=== PATIENT | female | born 1960 | race Two or more races ===

== ENCOUNTER 2021-10-17 19:11 | Inpatient (IN) | payer OTHER ==
[~2021-10-17] VITALS: Ht 162.6 cm; Wt 95.3 kg
[~2021-10-17 19:11] MED LIST: PEPCID40 MG PO; ZOFRAN4 MG PO
[2021-10-17] MEDS ORDERED: ALBUTEROL0.63 MG/3 (19:32)
[2021-10-17] MEDS ORDERED: PROVENTIL HFA6.7 GM (19:32)
--- NOTE | 2021-10-17 19:33 | NUR ---
SE RECIBE PTE ALERTA Y ORIENTADA X3 QUIEN REFIERE SE ENVENENO CON CAMARONES HACE 8 CASTRO Y AUN SIENTE LOS SINTOMAS, DOLOR GENERAL DE CUERPO Y FIEBRE. SE MONITOREAN S/V Y AL MOMENTO DEL TRIAGE PRESENTA 102.8. SE UBICA EN FT.
--- NOTE | 2021-10-17 22:30 | NUR ---
PACIENTE EVALUADA POR DR ZABALA QUIEN [place] MEDICO, SE LE ORIENTA A PACIENTE SOBRE EL MISMO Y REFIERE ENTENDER SE COLECTAN MUESTRAS DE LABORATORIO Y SE ADMINISTRAN MEDICAMENTOS CALIN ORDEN. SE LE HACE ENTREGA DE CONTRASTE Y SE LE INDICA QUE NOTIFIQUE RUIZ PRONTO CULMINE EL MISMO. PACIENTE UBICADA EN MERARIILLO
--- NOTE | 2021-10-18 01:44 | NUR ---
SE NOTIFICA TERAPIA RESP A MS LADY.
--- NOTE | 2021-10-18 07:25 | NUR ---
SE RECIBE PTE DEL TURNO ANTERIOR, ALERTA Y ORIENTADA EN RU MORRIS ESFERAS, UBICADA EN ELIZABET NIVEL MAS BAJO, DYE DE IDENTIFICACION Y BARANDAS ELEVADAS POR PRECAUCION. SE OBSERVA CON BUEN PATRON RESPIRATORIO Y PIEL TIBIA AL TACTO. S/L PATENTE Y MATT DE EDEMA O ERITEMA. PENDIENTE CONSULTA CON DRA DURAN (MEDICINA INTERNA) Y DR ERAZO (CIRUGIA GENERAL). SE MANTIENE BAJO OBSERVACION.
--- NOTE | 2021-10-18 20:33 | NUR ---
SE REALIZA ADMINISTRACION DE MEDICAMENTOS POR ORDEN MEDICA, SE ORIENTA A PACIENTE SOBRE USO Y EFECTOS DEL MEDICAMENTO A SER ADMINISTRADO.
--- NOTE | 2021-10-18 23:27 | NUR ---
SE RECIBE PTE ALERTA Y ORIENTADA X3, CON BARANDAS ELEVADAS POR SEGURIDAD. PTE SE ENCUENTRA CANALIZADA EN BRAZO DERECHO CON ANGIO #22, MATT DE EDEMA Y ERITEMA; CON UN 0.9 1000ML BAJANDO A 120ML/HR. SE LEVON SIGNOS VITALES Y SE EVALUA DOLOR, LO CUAL PTE VERBALIZA NO TENER. PENDIENTE CONSULTA CON DR. JARQUIN.
--- NOTE | 2021-10-19 04:00 | NUR ---
PTE TRANQUILA EN CAMA CON BARANDAS ELEVADAS POR SEGURIDAD EN COMPANIA DE FAMILIAR. SE MANTIENE EN OBSERVACION POR CAMBIOS EN CONDICION MEDICA.
--- NOTE | 2021-10-19 07:02 | NUR ---
SE RECIBE ENTREGA DE TURNO. PTE SE ENCUENTRA ALERTA Y ORIENTADA X3. SE ENCUENTRA EN ELIZABET CON BARANDAS ELEVADAS, DYE DE IDENTIFICACION Y SIN DIFICULTAD RESPIRATORIA. ACCESO VENOSO #20 EN BRAZO DERECHO PATENTE SIN ERITEMA NI EDEMA. RECIBE 1000 ML 0.9 NSS A 120 ML/HR. EN ESPERA DE REEVALUACION POR CASTRO MILES. SE MANTIENE BAJO OBSERVACION.
--- NOTE | 2021-10-19 12:19 | NUR ---
SE PROVEE SEGUIMIENTO A PTE CON DR ERAZO QUIEN INDICA QUE PTE DEBE SER ADMITIDA POR MEDICINA INTERNA. SE NOTIFICA A LA DRA JORDAN, QUIEN INDICA QUE LA MISMA ES UN OLIVIER QUIRURGICO, POR LO QUE SE NOTIFICA A DR ALEX DE LA PAZ POR DR VERDIN.
[2021-10-20] MEDS ORDERED: ONDANSETRON ODT4 MG (15:16)
[2021-10-20] MEDS ORDERED: FAMOTIDINE40 MG (15:16)
== END 2021-10-23 15:20 | disposition home or self-care (01) | DRG 446 ==
LOC: ER 19:11 → MEDJ 10-19 15:01
PROVIDERS: ADMIT Internal Medicine; ATTEND Internal Medicine
DX: K80.00 Calculus of gallbladder with acute cholecystitis without obstruction (principal); R63.0 Anorexia; R10.11 Right upper quadrant pain; Z20.822 Contact with and (suspected) exposure to COVID-19

== ENCOUNTER 2023-12-17 16:57 | Emergency (ER) | payer OTHER ==
[~2023-12-17] VITALS: Ht 162.6 cm; Wt 98.0 kg
[~2023-12-17 16:57] MED LIST changes: +ALBUTEROL0.63 MG/3; +FAMOTIDINE40 MG; +ONDANSETRON ODT4 MG; +PROVENTIL HFA6.7 GM
[2023-12-17] MEDS ORDERED: COZAAR25 MG PO (17:30)
[2023-12-17] MEDS ORDERED: ATORVASTATIN CA10 MG PO (17:30)
[2023-12-17] MEDS ORDERED: ACETAMINOPHEN 500 MG GEL..CAP PO ONE (18:15)
[2023-12-17 19:23] LABS: HEMATOCRIT 31.9 % (36.0-45.00); MEAN CELL VOLUME 85.4 fL (80.00-100.00); MEAN CORPUSCULAR HEMOGLOBIN 29.5 pg (27.00-32.0); MEAN CORPUSCULAR HGB CONC 34.6 g/dl (32.0-36.0); PLATELET COUNT 373 K/uL (150-450); RED BLOOD COUNT 3.74 M/uL (4.00-6.00); RED CELL DISTRIBUTION WIDTH 13.1 % (11.5-14.5)
[2023-12-17 19:27] LABS: ALBUMIN 3.5 gm/dL (3.4-5.0); BILIRUBIN TOTAL 0.76 mg/dL (0.3-1.2); CALCIUM 8.7 mg/dL (8.5-10.1); CREATININE SERUM 0.84 mg/dL (0.55-1.02); GFR 68.7; GLOBULINA 3.7 G/DL (2.4-3.5); TOTAL PROTEIN 7.2 gm/dL (6.4-8.2)
[2023-12-17 19:28] LABS: POTASSIUM 3.87 mEq/L (3.5-5.1)
[2023-12-17 20:42] LABS: PH,URINE 5.5 (5.0-8.0); URINE APPEARANCE Cloudy; URINE BILIRRUBIN Small (NEGATIVE); URINE BLOOD Negative; URINE COLOR Dark Yellow; URINE GLUCOSE Negative (NEGATIVE); URINE KETONE Trace (NEGATIVE); URINE LEUKOCYTE Trace; URINE NITRATE Negative; URINE PROTEIN 30 (NEGATIVE)
[2023-12-17 20:46] LABS: URINE BACTERIA 4504.2 uL (0.0-1933); URINE EPITHELIAL CELLS 186.2 uL (0.0-38.8); URINE RBC 14.8 uL (0.0-20.8); URINE WBC 9.7 uL (0.0-23.2)
[2023-12-17 21:15] LABS: URINE CAST 0.91 uL (0.0-1.40)
[2023-12-17 22:55] LABS: ABG PH 7.448 (7.35-7.45); ABG pCO2 36.7 mmHg (35-45)
[2023-12-17 22:56] LABS: ABG PO2 78.7 mmHg (80-100); BASE EXCESS 1.1 mmol/l; BICARBONATE 24.8 mmol/l (23-25)
[2023-12-17 22:57] LABS: allen test SATISFACTORY; o2 21 %; puncture site RADIAL LEFT
[2023-12-17 22:58] LABS: SaO2 96.1 %
[2023-12-18] MEDS ORDERED: BACTRIM DS TAB1 EACH PO (01:38)
[2023-12-18] MEDS ORDERED: FAMCICLOVIR500 MG PO (01:40)
== END 2023-12-18 02:57 ==
LOC: ER 16:57
PROVIDERS: Nurse Practitioner Family
DX: R50.9 Fever, unspecified (principal); C50.912 Malignant neoplasm of unspecified site of left female breast; I10 Essential (primary) hypertension; J45.909 Unspecified asthma, uncomplicated; Z88.0 Allergy status to penicillin; Z91.013 Allergy to seafood; C56.1 Malignant neoplasm of right ovary

== ENCOUNTER 2024-03-28 15:40 | Emergency (ER) | payer OTHER ==
[~2024-03-28] VITALS: Ht 162.6 cm; Wt 70.8 kg
[~2024-03-28 15:40] MED LIST changes: +ATORVASTATIN CA10 MG PO; +BACTRIM DS TAB1 EACH PO; +COZAAR25 MG PO; +FAMCICLOVIR500 MG PO
[2024-03-28 15:52] VITALS: BP 93/65; O2SAT 98
[2024-03-28] MEDS ORDERED: 0.9 % SODIUM CHLORIDE 1,000 ML IV STA (17:44)
[2024-03-28] MEDS ORDERED: HYOSCYAMINE SULFATE 0.125 MG TAB.SUBL SL ONE (17:45)
[2024-03-28] MEDS ORDERED: KETOROLAC TROMETHAMINE 60 MG VIAL IM STA (17:45)
[2024-03-28] MEDS ORDERED: ONDANSETRON HCL 2 MG/ML VIAL IV STA (17:46)
[2024-03-28] MEDS ORDERED: FAMOtidine 10 MG/ML (4ML VIAL) IV PUSH STA (17:46)
[2024-03-28] MEDS ORDERED: PROMETHAZINE HCL 50 MG/ML AMPUL IM STA (17:47)
[2024-03-28] MEDS ORDERED: MEPERIDINE HCL/PF 25 MG/ML VIAL IM STA (17:47)
[2024-03-28] MEDS ORDERED: HYOSCYAMINE SULFATE 0.125 MG TAB.SUBL ONE (18:09)
[2024-03-28] MEDS ORDERED: KETOROLAC TROMETHAMINE 30 MG VIAL ONE (18:09)
[2024-03-28] MEDS ORDERED: FAMOTIDINE/PF 20 MG/2 ML VIAL ONE (18:10)
[2024-03-28] MEDS ORDERED: ONDANSETRON HCL 2 MG/ML VIAL ONE (18:10)
[2024-03-28 18:42] LABS: HEMATOCRIT 35.2 % (36.0-45.00); HEMOGLOBIN 11.6 g/dL (12.0-15.00); MEAN CELL VOLUME 83.9 fL (80.00-100.00); MEAN CORPUSCULAR HEMOGLOBIN 27.7 pg (27.00-32.0); PLATELET COUNT 448 K/uL (150-450); RED BLOOD COUNT 4.19 M/uL (4.00-6.00)
[2024-03-28 18:51] LABS: RED CELL DISTRIBUTION WIDTH 17.9 % (11.5-14.5)
[2024-03-28 19:05] LABS: ALBUMIN 3.6 gm/dL (3.4-5.0); BILIRUBIN TOTAL 0.83 mg/dL (0.3-1.2); CALCIUM 9.6 mg/dL (8.5-10.1); CREATININE SERUM 1.35 mg/dL (0.55-1.02); GFR 39.73; GLOBULINA 4.6 G/DL (2.4-3.5); POTASSIUM 3.19 mEq/L (3.5-5.1); TOTAL PROTEIN 8.2 gm/dL (6.4-8.2)
[2024-03-28 20:18] LABS: URINE APPEARANCE Turbid; URINE BILIRRUBIN Moderate (NEGATIVE); URINE BLOOD Negative; URINE COLOR Orange; URINE KETONE 15 (NEGATIVE); URINE LEUKOCYTE Small; URINE NITRATE Positive
[2024-03-28] MEDS ORDERED: CIPROFLOXACIN IN 5 % DEXTROSE 400 MG/200 ML PIGGYBAG IV STA (20:20)
[2024-03-28 20:22] LABS: URINE RBC 118.7 uL (0.0-20.8); URINE WBC 90.7 uL (0.0-23.2)
[2024-03-28] MEDS ORDERED: CIPROFLOXACIN IN 5 % DEXTROSE 400 MG/200 ML PIGGYBAG IV ONE (20:32)
[2024-03-28 20:53] LABS: URINE BACTERIA > 9821.5 uL (0.0-1933); URINE CAST > 21.83 uL (0.0-1.40); URINE EPITHELIAL CELLS > 201.7 uL (0.0-38.8); URINE GLUCOSE 100 MG/DL (NEGATIVE); URINE PROTEIN 300 (NEGATIVE)
== END 2024-03-28 22:23 | disposition home or self-care (01) ==
LOC: ER 15:42
DX: K52.9 Noninfective gastroenteritis and colitis, unspecified (principal); Z88.0 Allergy status to penicillin; Z91.013 Allergy to seafood; Z85.3 Personal history of malignant neoplasm of breast; Z20.822 Contact with and (suspected) exposure to COVID-19

== ENCOUNTER 2024-04-03 16:34 | Emergency (ER) | payer OTHER ==
[~2024-04-03] VITALS: Ht 162.6 cm; Wt 68.0 kg
[2024-04-03] MEDS ORDERED: ONDANSETRON HCL 2 MG/ML VIAL IV STA ×2 (17:20→21:43)
[2024-04-03] MEDS ORDERED: ONDANSETRON HCL 2 MG/ML VIAL ONE ×2 (17:34→21:48)
[2024-04-03] MEDS ORDERED: 0.9 % SODIUM CHLORIDE 1,000 ML IV SCH (18:00)
[2024-04-03 18:05] LABS: HEMATOCRIT 30.4 % (36.0-45.00); HEMOGLOBIN 10.4 g/dL (12.0-15.00); MEAN CELL VOLUME 83.2 fL (80.00-100.00); MEAN CORPUSCULAR HEMOGLOBIN 28.5 pg (27.00-32.0); MEAN CORPUSCULAR HGB CONC 34.3 g/dl (32.0-36.0); PLATELET COUNT 359 K/uL (150-450); RED BLOOD COUNT 3.65 M/uL (4.00-6.00); RED CELL DISTRIBUTION WIDTH 18.3 % (11.5-14.5)
[2024-04-03 18:35] LABS: CALCIUM 9.2 mg/dL (8.5-10.1); CREATININE SERUM 0.9 mg/dL (0.55-1.02); GFR 63.44; POTASSIUM 3.33 mEq/L (3.5-5.1)
[2024-04-03 20:45] LABS: URINE APPEARANCE Cloudy; URINE BILIRRUBIN Small (NEGATIVE); URINE BLOOD Negative; URINE COLOR Dark Yellow; URINE GLUCOSE Negative (NEGATIVE); URINE KETONE 15 (NEGATIVE); URINE LEUKOCYTE Small; URINE NITRATE Negative; URINE PROTEIN 30 (NEGATIVE)
[2024-04-03 20:49] LABS: URINE CAST 7.36 uL (0.0-1.40); URINE EPITHELIAL CELLS 167.6 uL (0.0-38.8); URINE RBC 59.2 uL (0.0-20.8); URINE WBC 52.5 uL (0.0-23.2)
[2024-04-03 21:20] LABS: URINE CRYSTALS MODERATE /HPF
[2024-04-03 21:23] LABS: URINE MUCUS HEAVY
== END 2024-04-03 22:40 | disposition home or self-care (01) ==
LOC: ER 16:34
PROVIDERS: Emergency Medicine
DX: K29.70 Gastritis, unspecified, without bleeding (principal); Z88.0 Allergy status to penicillin; Z91.013 Allergy to seafood; Z85.3 Personal history of malignant neoplasm of breast

== ENCOUNTER 2024-04-07 20:36 | Inpatient (IN) | payer OTHER ==
[~2024-04-07] VITALS: Ht 162.6 cm; Wt 83.9 kg
--- NOTE | 2024-04-07 20:57 | NUR ---
SE RECIBE PACIENTE ALERTA Y ORIENTADA X3, REFIERE TENER DOLOR ABDOMINAL, VOMITOS Y DIARREAS.
[2024-04-07] MEDS ORDERED: MEPERIDINE HCL/PF 50 MG/ML VIAL IM ONE (21:30)
[2024-04-07] MEDS ORDERED: 0.9 % SODIUM CHLORIDE 1,000 ML IV ONE (21:30)
[2024-04-07] MEDS ORDERED: ONDANSETRON HCL 2 MG/ML VIAL IV ONE (21:30)
[2024-04-07] MEDS ORDERED: PROMETHAZINE HCL 25 MG/ML AMPUL IM ONE (21:30)
[2024-04-07] MEDS ORDERED: PANTOPRAZOLE SODIUM 40 MG/VIAL VIAL IV ONE (21:30)
[2024-04-07] MEDS ORDERED: ONDANSETRON HCL 2 MG/ML VIAL ONE (22:19)
[2024-04-07] MEDS ORDERED: PROMETHAZINE HCL 25 MG/ML AMPUL ONE (22:20)
--- NOTE | 2024-04-07 22:29 | NUR ---
SE EDUCA SOBRE [place] MEDICO, ESTA REFIERE ENTENDER. SE EXTRAEN MUESTRAS DE LABORATORIO Y SE ADMINISTRAN MEDICAMENTOS CALIN ORDEN MEDICA.
--- NOTE | 2024-04-07 23:00 | NUR ---
SE RECIBE PACIENTE ALERTA Y ORIENTADA X 3 ESFERAS EN CAMA CON BARANDAS ELEVADAS POR SEGURIDAD EN COMPANIA DE FAMILIAR. PRESENTANDO BUEN PATRON RESPIRATORIO. RECIBIENDO IV'S 0.9NSS BAJANDO A 140ML/HR AREA DE VENOPUNCION MATT DE EDEMA Y ERITEMA EN BRAZO DERECHO. PENDIENTE REALIZAR CT ABDOMEN/PELVICO IV. 2320- SE ORIENTA A PACIENTE SOBRE [place] MEDICO, REFIERE ENTENDER. SE ADMINISTRA MEDICAMENTO CALIN ORDEN MEDICA. SE MANTIENE EN OBSERVACION.
[2024-04-07 23:14] LABS: HEMATOCRIT 31.4 % (36.0-45.00); HEMOGLOBIN 10.7 g/dL (12.0-15.00); MEAN CELL VOLUME 83.3 fL (80.00-100.00); MEAN CORPUSCULAR HEMOGLOBIN 28.4 pg (27.00-32.0); MEAN CORPUSCULAR HGB CONC 34.1 g/dl (32.0-36.0); PLATELET COUNT 215 K/uL (150-450); RED BLOOD COUNT 3.76 M/uL (4.00-6.00); RED CELL DISTRIBUTION WIDTH 17.2 % (11.5-14.5)
[2024-04-07 23:30] LABS: BILIRUBIN TOTAL 1.1 mg/dL (0.3-1.2); CALCIUM 9.1 mg/dL (8.5-10.1); CREATININE SERUM 0.88 mg/dL (0.55-1.02); GFR 65.11; GLOBULINA 3.8 G/DL (2.4-3.5); POTASSIUM 3.05 mEq/L (3.5-5.1); TOTAL PROTEIN 6.8 gm/dL (6.4-8.2)
[2024-04-07] MEDS ORDERED: DIPHENHYDRAMINE HCL 50 MG/ML VIAL 1ML IV ONE (23:45)
[2024-04-08] MEDS ORDERED: DIPHENHYDRAMINE HCL 50 MG/ML VIAL 1ML ONE (00:09)
[2024-04-08 01:31] LABS: PH,URINE 6.5 (5.0-8.0); URINE APPEARANCE Clear; URINE BACTERIA 9487.1 uL (0.0-1933); URINE BILIRRUBIN Moderate (NEGATIVE); URINE BLOOD Negative; URINE COLOR Dark Yellow; URINE EPITHELIAL CELLS 71.5 uL (0.0-38.8); URINE GLUCOSE Negative (NEGATIVE); URINE LEUKOCYTE Small; URINE NITRATE Negative; URINE PROTEIN 30 (NEGATIVE); URINE RBC 14.1 uL (0.0-20.8)
[2024-04-08 01:41] LABS: URINE CAST 0.58 uL (0.0-1.40); URINE CRYSTALS FEW /HPF; URINE KETONE >=160 (NEGATIVE)
--- NOTE | 2024-04-08 04:10 | NUR ---
RE-EVALUA PACIENTE. SE ORIENTA SOBRE TRATAMIENTO MEDICO, REFIERE ENTENDER. SE INSERTA SONDA NASOGASTRICA #18 EN FOSA NASAL DERECHA, SE VERIFICA PATENTICIDAD POR MEDIO DE LA AUSCULTACION, SE ENCUENTRA PATENTE. SE CONECTA A SUCCION INTERMITENTE. SE OBSERVA EGRESO GASTRICO DE 50ML COLOR AMARILLO. SE MICHAEL A PACIENTE EN CAMA EN COMPANIA DE FAMILIAR.
[2024-04-08] MEDS ORDERED: ENALAPRILAT DIHYDRATE 1.25 MG/ML VIAL IV PRN (11:15)
[2024-04-08] MEDS ORDERED: ONDANSETRON HCL 2 MG/ML VIAL IV PRN (11:15)
[2024-04-08] MEDS ORDERED: POTASSIUM CHLORIDE/D5W 20 MEQ/1,000 ML PIGGYBAG IV ONE ×2 (11:28→11:30)
[2024-04-08 11:33] VITALS: BP 106/57
[2024-04-08] MEDS ORDERED: MEROPENEM 1,000 MG VIAL IV SCH (13:00)
[2024-04-08 18:00] VITALS: BP 139/83
[2024-04-09 01:42] VITALS: BP 133/77
[2024-04-09 08:44] VITALS: BP 122/71; O2SAT 96
[2024-04-09 17:19] VITALS: BP 136/78; O2SAT 96
[2024-04-10 01:11] VITALS: BP 123/75; O2SAT 98
[2024-04-10 08:32] VITALS: BP 103/61; O2SAT 95
[2024-04-10 16:43] VITALS: BP 114/65; O2SAT 98
[2024-04-10] MEDS ORDERED: MEROPENEM 500 MG/VIAL VIAL IV SCH (18:00)
[2024-04-11 00:25] VITALS: BP 106/48
[2024-04-11 09:08] VITALS: BP 111/63; O2SAT 97
[2024-04-11 17:35] LABS: HEMATOCRIT 32.4 % (36.0-45.00); HEMOGLOBIN 11.1 g/dL (12.0-15.00); MEAN CELL VOLUME 83.1 fL (80.00-100.00); MEAN CORPUSCULAR HEMOGLOBIN 28.4 pg (27.00-32.0); MEAN CORPUSCULAR HGB CONC 34.2 g/dl (32.0-36.0); PLATELET COUNT 384 K/uL (150-450); RED BLOOD COUNT 3.89 M/uL (4.00-6.00); RED CELL DISTRIBUTION WIDTH 17.8 % (11.5-14.5)
[2024-04-11 17:41] VITALS: BP 115/65
[2024-04-11 18:10] LABS: ALBUMIN 3.1 gm/dL (3.4-5.0); BILIRUBIN TOTAL 1.69 mg/dL (0.3-1.2); CALCIUM 9.6 mg/dL (8.5-10.1); CREATININE SERUM 0.74 mg/dL (0.55-1.02); GFR 79.52; GLOBULINA 3.7 G/DL (2.4-3.5); POTASSIUM 3.11 mEq/L (3.5-5.1); TOTAL PROTEIN 6.8 gm/dL (6.4-8.2)
[2024-04-12 00:44] VITALS: BP 127/69; O2SAT 98
[2024-04-12 09:12] VITALS: BP 118/67; O2SAT 96
[2024-04-12 17:16] VITALS: BP 123/65
[2024-04-13 00:41] VITALS: BP 103/59
[2024-04-13 09:17] VITALS: BP 120/65; O2SAT 100
[2024-04-13 15:40] LABS: CALCIUM 9.2 mg/dL (8.5-10.1); CREATININE SERUM 0.63 mg/dL (0.55-1.02); GFR 95.75
[2024-04-13 16:14] LABS: POTASSIUM 2.83 mEq/L (3.5-5.1)
[2024-04-13 16:30] LABS: CHOL HDL RATIO 4.9 (0-5.0)
[2024-04-13] MEDS ORDERED: MAGNESIUM SULFATE IN WATER 50 ML IV NR (16:30)
[2024-04-13 16:57] VITALS: BP 121/71; O2SAT 97
[2024-04-13] MEDS ORDERED: AA 2.36%/D6.8W/FAT/E-LYTES NO9 1,440 ML IV SCH (17:00)
[2024-04-13] MEDS ORDERED: POTASSIUM CHLORIDE IN WATER 100 ML IV SCH (18:00)
[2024-04-14 02:13] VITALS: BP 134/60
[2024-04-14 07:49] LABS: CALCIUM 9.1 mg/dL (8.5-10.1); CREATININE SERUM 0.79 mg/dL (0.55-1.02); GFR 73.74; MAGNESIUM 2.8 mg/dL (1.8-2.4); POTASSIUM 5.34 mEq/L (3.5-5.1)
[2024-04-14 08:18] VITALS: BP 111/60
[2024-04-14 17:33] VITALS: BP 111/51; O2SAT 97
[2024-04-15 02:00] VITALS: BP 106/61
[2024-04-15 08:04] VITALS: BP 127/61
[2024-04-15] MEDS ORDERED: ONDANSETRON HCL 2 MG/ML VIAL IV PRN (17:30)
[2024-04-15] MEDS ORDERED: FAMOTIDINE/PF 20 MG/2 ML VIAL IV PUSH PRN (17:30)
[2024-04-15 17:37] VITALS: BP 110/74; O2SAT 99
[2024-04-15] MEDS ORDERED: FAMOTIDINE/PF 20 MG/2 ML VIAL IV PUSH SCH (21:00)
[2024-04-16 02:12] VITALS: BP 93/47
[2024-04-16 07:10] LABS: INR 0.98; PARTIAL THROMBOPLASTIN TIME 25.8 SECONDS (22.0-34.0); PROTHROMBIN TIME 10.7 SECONDS (9.0-11.5)
[2024-04-16 07:19] LABS: HEMATOCRIT 35.1 % (36.0-45.00); HEMOGLOBIN 11.6 g/dL (12.0-15.00); MEAN CORPUSCULAR HEMOGLOBIN 28.1 pg (27.00-32.0); MEAN CORPUSCULAR HGB CONC 33.1 g/dl (32.0-36.0); PLATELET COUNT 325 K/uL (150-450); RED BLOOD COUNT 4.13 M/uL (4.00-6.00); RED CELL DISTRIBUTION WIDTH 17.3 % (11.5-14.5)
[2024-04-16 07:27] LABS: BILIRUBIN TOTAL 1.27 mg/dL (0.3-1.2); BILIRUBIN,CONJUGATED 0.83 mg/dL (0.0-0.2); BILIRUBIN,UNCONJUGATED 0.44 mg/dL (0.0-0.6); CALCIUM 9.4 mg/dL (8.5-10.1); CHOL HDL RATIO 5.6 (0-5.0); CREATININE SERUM 1.33 mg/dL (0.55-1.02); GFR 40.43; GLOBULINA 3.5 G/DL (2.4-3.5); MAGNESIUM 2.7 mg/dL (1.8-2.4); POTASSIUM 3.41 mEq/L (3.5-5.1); TOTAL PROTEIN 6.5 gm/dL (6.4-8.2)
[2024-04-16 08:28] LABS: UREA CLEARANCE 8.4 ML/MIN
[2024-04-16 09:04] VITALS: BP 106/53
[2024-04-16 16:28] VITALS: BP 119/80; O2SAT 98
[2024-04-16] MEDS ORDERED: fentaNYL CITRATE 50 MCG/ML AMPUL IV PUSH ONE (22:00)
[2024-04-16] MEDS ORDERED: MIDAZOLAM HCL 2 MG/2 ML VIAL IV PUSH ONE (22:00)
[2024-04-17] VITALS: BP 104/58; O2SAT 98
[2024-04-17 09:44] VITALS: BP 104/59; O2SAT 98
[2024-04-17 17:20] VITALS: BP 119/65; O2SAT 99
[2024-04-18 02:54] VITALS: BP 120/59; O2SAT 97
[2024-04-18 08:39] VITALS: BP 117/57
[2024-04-18 16:57] VITALS: BP 107/53
[2024-04-19 00:52] VITALS: BP 107/60; O2SAT 98
[2024-04-19 08:43] VITALS: BP 128/69; O2SAT 97
[2024-04-19 11:36] LABS: HEMATOCRIT 33.4 % (36.0-45.00); HEMOGLOBIN 11.3 g/dL (12.0-15.00); MEAN CELL VOLUME 82.7 fL (80.00-100.00); MEAN CORPUSCULAR HEMOGLOBIN 27.9 pg (27.00-32.0); MEAN CORPUSCULAR HGB CONC 33.8 g/dl (32.0-36.0); PLATELET COUNT 279 K/uL (150-450); RED BLOOD COUNT 4.04 M/uL (4.00-6.00); RED CELL DISTRIBUTION WIDTH 17.1 % (11.5-14.5)
[2024-04-19 12:56] LABS: ALBUMIN 2.9 gm/dL (3.4-5.0); BILIRUBIN TOTAL 0.76 mg/dL (0.3-1.2); CREATININE SERUM 0.93 mg/dL (0.55-1.02); GFR 61.09; GLOBULINA 3.5 G/DL (2.4-3.5); POTASSIUM 3.43 mEq/L (3.5-5.1); TOTAL PROTEIN 6.4 gm/dL (6.4-8.2)
[2024-04-19 17:48] VITALS: BP 124/66
[2024-04-20 02:15] VITALS: BP 104/61; O2SAT 96
[2024-04-20 08:40] VITALS: BP 111/58; O2SAT 97
[2024-04-20 17:21] VITALS: BP 109/57; O2SAT 99
[2024-04-21 03:11] VITALS: BP 118/68; O2SAT 95
[2024-04-21 10:30] VITALS: BP 118/65; O2SAT 99
[2024-04-21] MEDS ORDERED: METOCLOPRAMIDE HCL 5 MG/5 ML ML PO SCH (11:00)
[2024-04-21 14:17] LABS: CALCIUM 8.4 mg/dL (8.5-10.1); CREATININE SERUM 0.75 mg/dL (0.55-1.02); GFR 78.3; POTASSIUM 3.51 mEq/L (3.5-5.1)
[2024-04-21 16:17] VITALS: BP 117/71; O2SAT 99
[2024-04-22 00:49] VITALS: BP 118/50
[2024-04-22 09:04] VITALS: BP 102/62; O2SAT 99
[2024-04-22 17:21] VITALS: BP 106/60; O2SAT 97
[2024-04-23 00:54] VITALS: BP 111/77
[2024-04-23 09:50] VITALS: BP 128/70; O2SAT 97
[2024-04-23] MEDS ORDERED: METOCLOPRAMIDE HCL 5 MG/ML VIAL IV SCH (11:00)
[2024-04-23 11:23] LABS: HEMATOCRIT 32.9 % (36.0-45.00); MEAN CORPUSCULAR HEMOGLOBIN 27.3 pg (27.00-32.0); MEAN CORPUSCULAR HGB CONC 33.3 g/dl (32.0-36.0); PLATELET COUNT 241 K/uL (150-450); RED BLOOD COUNT 4.01 M/uL (4.00-6.00); RED CELL DISTRIBUTION WIDTH 16.4 % (11.5-14.5)
[2024-04-23 12:18] LABS: CALCIUM 8.4 mg/dL (8.5-10.1); CREATININE SERUM 0.8 mg/dL (0.55-1.02); GFR 72.68
[2024-04-23 12:45] LABS: POTASSIUM 2.83 mEq/L (3.5-5.1)
[2024-04-23] MEDS ORDERED: POTASSIUM CHLORIDE 20MEQ/100ML H2O PB IV SCH (16:00)
[2024-04-23 16:36] VITALS: BP 116/64; O2SAT 98
[2024-04-23 19:56] LABS: ALBUMIN 2.9 gm/dL (3.4-5.0); BILIRUBIN TOTAL 1.08 mg/dL (0.3-1.2); BILIRUBIN,CONJUGATED 0.64 mg/dL (0.0-0.2); BILIRUBIN,UNCONJUGATED 0.44 mg/dL (0.0-0.6); CHOL HDL RATIO 5.4 (0-5.0); MAGNESIUM 1.8 mg/dL (1.8-2.4); TOTAL PROTEIN 6.5 gm/dL (6.4-8.2)
[2024-04-24 01:39] VITALS: BP 124/51
[2024-04-24 08:43] VITALS: BP 104/57
[2024-04-24 16:00] VITALS: BP 139/86; O2SAT 100
[2024-04-25 00:36] VITALS: BP 112/63
[2024-04-25 07:09] LABS: ALBUMIN 2.7 gm/dL (3.4-5.0); BILIRUBIN TOTAL 1.54 mg/dL (0.3-1.2); CALCIUM 8.3 mg/dL (8.5-10.1); CREATININE SERUM 0.82 mg/dL (0.55-1.02); GFR 70.64; GLOBULINA 3.6 G/DL (2.4-3.5); POTASSIUM 3.14 mEq/L (3.5-5.1); TOTAL PROTEIN 6.3 gm/dL (6.4-8.2)
[2024-04-25 07:55] LABS: HEMATOCRIT 34.5 % (36.0-45.00); HEMOGLOBIN 11.6 g/dL (12.0-15.00); MEAN CELL VOLUME 82.1 fL (80.00-100.00); MEAN CORPUSCULAR HEMOGLOBIN 27.6 pg (27.00-32.0); MEAN CORPUSCULAR HGB CONC 33.6 g/dl (32.0-36.0); RED CELL DISTRIBUTION WIDTH 16.9 % (11.5-14.5)
[2024-04-25 08:10] LABS: PLATELET COUNT 151 K/uL (150-450)
[2024-04-25 08:56] VITALS: BP 115/69; O2SAT 97
[2024-04-25] MEDS ORDERED: RINGERS SOLUTION,LACTATED 500 ML IV ONE ×2 (11:30→11:45)
[2024-04-25] MEDS ORDERED: ENOXAPARIN SODIUM 40 MG/0.4 ML SYRINGE SUBCUTANEO NR (12:00)
[2024-04-25] MEDS ORDERED: MAGNESIUM SULFATE IN WATER 2 GM/50 ML PIGGYBAG IV NR (12:00)
[2024-04-25] MEDS ORDERED: OCTREOTIDE ACETATE 100MCG/ML (0.1MG/ML) AMPUL IV NR (12:00)
[2024-04-25] MEDS ORDERED: DIATRIZOATE MEGLUMINE, SODIUM 30 ML BOTTLE PO NR (12:00)
[2024-04-25] MEDS ORDERED: METOPROLOL SUCCINATE 25 MG TAB.SR.24H PO NR (13:00)
[2024-04-25] MEDS ORDERED: METHYLPREDNISOLONE SOD SUCC 40 MG VIAL IV SCH (13:00)
[2024-04-25] MEDS ORDERED: POTASSIUM CHLORIDE 20MEQ/100ML H2O PB IV NR (14:00)
[2024-04-25 17:46] VITALS: BP 120/70; O2SAT 96
[2024-04-25] MEDS ORDERED: OCTREOTIDE ACETATE 100MCG/ML (0.1MG/ML) AMPUL IV SCH (21:00)
[2024-04-26] VITALS: BP 107/61; O2SAT 95
[2024-04-26] MEDS ORDERED: DIPHENHYDRAMINE HCL 50 MG/ML VIAL 1ML IV NR (08:00)
[2024-04-26] MEDS ORDERED: METHYLPREDNISOLONE SOD SUCC 40 MG VIAL IV NR (08:00)
[2024-04-26 08:24] VITALS: BP 109/67
[2024-04-26 08:29] LABS: FECAL LEUKOCYTES POSITIVE (NEGATIVE)
[2024-04-26] MEDS ORDERED: METOPROLOL SUCCINATE 25 MG TAB.SR.24H PO SCH (09:00)
[2024-04-26] MEDS ORDERED: ENOXAPARIN SODIUM 40 MG/0.4 ML SYRINGE SUBCUTANEO SCH (09:00)
[2024-04-26] MEDS ORDERED: ONDANSETRON HCL 2 MG/ML VIAL IV SCH (12:00)
[2024-04-26 17:08] VITALS: BP 118/68; O2SAT 99
[2024-04-26] MEDS ORDERED: PANTOPRAZOLE SODIUM 40 MG/VIAL VIAL IV SCH (21:00)
[2024-04-27] VITALS: BP 104/69; O2SAT 98
[2024-04-27 09:28] VITALS: BP 110/56
[2024-04-27 14:18] LABS: HEMATOCRIT 25.6 % (36.0-45.00); HEMOGLOBIN 9.5 g/dL (12.0-15.00); MEAN CELL VOLUME 80.8 fL (80.00-100.00); MEAN CORPUSCULAR HGB CONC 37.1 g/dl (32.0-36.0); RED BLOOD COUNT 3.17 M/uL (4.00-6.00)
[2024-04-27 15:28] LABS: PLATELET COUNT 104 K/uL (150-450)
[2024-04-27 17:22] LABS: ALBUMIN 2.7 gm/dL (3.4-5.0); BILIRUBIN TOTAL 1.04 mg/dL (0.3-1.2); BILIRUBIN,CONJUGATED 0.67 mg/dL (0.0-0.2); BILIRUBIN,UNCONJUGATED 0.37 mg/dL (0.0-0.6); CALCIUM 8.4 mg/dL (8.5-10.1); GFR 56.18; GLOBULINA 3.4 G/DL (2.4-3.5); POTASSIUM 3.75 mEq/L (3.5-5.1); TOTAL PROTEIN 6.1 gm/dL (6.4-8.2)
[2024-04-27 17:25] LABS: BILIRUBIN TOTAL 1.06 mg/dL (0.3-1.2); BILIRUBIN,CONJUGATED 0.69 mg/dL (0.0-0.2); BILIRUBIN,UNCONJUGATED 0.37 mg/dL (0.0-0.6)
[2024-04-27 17:27] VITALS: BP 93/55; O2SAT 100
[2024-04-27] MEDS ORDERED: DEXTROSE 5 % AND 0.9 % NACL 1,000 ML IV SCH (19:15)
[2024-04-28 02:18] VITALS: BP 97/44
[2024-04-28 08:45] VITALS: BP 94/56
[2024-04-28 16:34] VITALS: BP 120/56; O2SAT 96
[2024-04-29 02:34] VITALS: BP 114/60; O2SAT 97
[2024-04-29 08:49] VITALS: BP 101/58; O2SAT 98
[2024-04-29 16:00] VITALS: BP 140/66; O2SAT 97
[2024-04-30 02:28] VITALS: BP 109/54
[2024-04-30 09:43] VITALS: BP 109/60; O2SAT 98
== END 2024-04-30 10:12 | disposition home or self-care (01) | DRG 988 ==
LOC: ER 20:39 → MEDI 04-08 11:46
PROVIDERS: General Practice; Internal Medicine; Internal Medicine Infectious Disease; Student in an Organized Health Care Education/Training Program; ADMIT Internal Medicine; ATTEND Internal Medicine
PROC: BW21YZZ Computerized Tomography (CT Scan) of Abdomen and Pelvis using Other Contrast (ICD-10-PCS; 2024-04-07)
PROC: 02HV33Z Insertion of Infusion Device into Superior Vena Cava, Percutaneous Approach (ICD-10-PCS; 2024-04-13)
PROC: 0W9H3ZX Drainage of Retroperitoneum, Percutaneous Approach, Diagnostic (ICD-10-PCS; principal; 2024-04-16)
PROC: 0WBF3ZX Excision of Abdominal Wall, Percutaneous Approach, Diagnostic (ICD-10-PCS; 2024-04-16)
PROC: 0DH68UZ Insertion of Feeding Device into Stomach, Via Natural or Artificial Opening Endoscopic (ICD-10-PCS; 2024-04-22)
PROC: BW21YZZ Computerized Tomography (CT Scan) of Abdomen and Pelvis using Other Contrast (ICD-10-PCS; 2024-04-25)
PROC: BW40ZZZ Ultrasonography of Abdomen (ICD-10-PCS; 2024-04-27)
DX: C49.4 Malignant neoplasm of connective and soft tissue of abdomen (principal); K56.690 Other partial intestinal obstruction; N39.0 Urinary tract infection, site not specified; K59.09 Other constipation; K29.70 Gastritis, unspecified, without bleeding; E86.0 Dehydration; Z88.0 Allergy status to penicillin; C50.919 Malignant neoplasm of unspecified site of unspecified female breast